=== PATIENT | female | born 1950 | race Caucasian/White ===

== ENCOUNTER 2019-01-26 11:56 | Inpatient (IN) | payer OTHER, BC, MEDICARE ==
[2019-01-26] VITALS (10 sets, daily range): BP systolic 97–129; BP diastolic 40–82; PULSE 70–83; TEMP 97.7–98.4
[~2019-01-26] VITALS: Ht 167.6 cm; Wt 64.3 kg
[2019-01-26] MEDS ORDERED: MULTI VITAMINS1 TAB PO (12:30)
[2019-01-26] MEDS ORDERED: GLUCOSAMIN 500 (12:30)
[2019-01-26] MEDS ORDERED: DIFLUCAN 100MG100 MG PO (12:31)
[2019-01-26] MEDS ORDERED: CALCIUM CARBON650 M2 (12:31)
--- NOTE | 2019-01-26 12:45 | NUR ---
Patient up to room 321, ambuatory. IV initiated to left forarm, x1 attempt. Family at bedside. Written orders entered into [facility]. Patient denies pain. Oriented patient and family to room. Denies further needs at this time.
[2019-01-26 12:53] LABS: BASO % 0.3 % (0.0-2.0); EOS # 0.1 (0.0-0.7); EOS % 0.5 % (0-4.0); GRAN # 6.7 (1.4-6.5); GRAN % 71.3 % (42.2-75.2); LYMPH # 1.7 (1.2-3.4); LYMPH % 18.4 % (20.0-51.0); MEAN CELL VOLUME 93 fl (80.0-100.0); MEAN CORPUSCULAR HGB CONC 32 g/dl (33.0-37.0); MEAN PLATELET VOLUME 10.2 fl (7.4-10.4); MONO # 0.9 (0.1-0.6); MONO % 9.1 % (1.7-9.3); PLATELET COUNT 449 K/mm3 (130-400); RED BLOOD COUNT 3.21 M/mm3 (4.10-5.30); REDCELL DISTRIBUTION WIDTH-CV 12.5 % (11.5-14.5)
[2019-01-26 13:00] LABS: C-REACTIVE PROTEIN 5.2 mg/dL (0.0-0.9); CALCIUM 8.9 mg/dL (8.4-10.2); CREATININE, serum 0.69 (0.52-1.25); POTASSIUM 4.6 mmol/L (3.4-5.0)
[2019-01-26 13:07] LABS: HEMATOCRIT 29.7 % (37.0-47.0); HEMOGLOBIN 9.6 g/dl (12.5-16.0); MEAN CORPUSCULAR HEMOGLOBIN 30 pg (27.0-31.0)
[2019-01-26 13:20] LABS: ERYTHROCYTE SEDIMENTATION RATE 92 mm/hr (0-30)
--- NOTE | 2019-01-26 20:00 | NUR ---
Received via bed post I/D right arm abscess, 68 Y/O female alert and oriented x4. Has IVF to left forearm without redness or swelling. Has right arm in sling with hemovac compressed. Reports numbess of right arm, not able to move fingers of rt hand but are warm to touch. Family at bedside.
--- NOTE | 2019-01-26 21:00 | NUR ---
Provided sandwich and fluids to drink. IV Vanco infusing without problem.
--- NOTE | 2019-01-26 22:00 | NUR ---
Up to bathroom with supervision. Voids and back to bed. Rt arm remains numb.
[2019-01-27] VITALS (7 sets, daily range): BP systolic 104–147; BP diastolic 46–82; PULSE 67–85; TEMP 97.8–98.4
--- NOTE | 2019-01-27 04:00 | NUR ---
Patient reports arm block has worn off, moves fingers on rt hand without problem. Denies pain.
--- NOTE | 2019-01-27 08:00 | NUR ---
PATIENT IS SITTING UP IN BED THIS MORNING. PATIENT IS A&OX4. VSS. BOWEL SOUNDS ACTIVE ALL FOUR QUADRANTS. PATIENT TOLERATING DIET WITHOUT COMPLAINTS OF N/V. RIGHT UPPER EXTREMITY DRESSED WITH GAUZE AND ANNA WRAP DRESSING WITH ARM TO A SLING. RUE DRESSING IS CD&I. POSITIVE RADIAL PULSES EQUAL BILATERALLY. CAP REFILL TO BUE <3 SECONDS. CMS INTACT. POSITIVE PEDAL PULSES EQUAL BILATERALLY. SCD'S TO BLE. RUE ELEVATED ON A PILLOW. TREMORS NOTED. PATIENT STATES THAT SHE HAS TINGLING IN HER RUE. PATIENT OTHERWISE DENIES PAIN. IV FLUIDS INFUSING TO LEFT FOREARM IV VIA PUMP. CALL LIGHT WITHIN REACH. PATIENT DENIES ANY OTHER NEEDS AT THIS TIME.
--- NOTE | 2019-01-27 10:11 | NUR ---
Initial visit; Patient thanked Lead Fabricator for looking in on her, offering God's blessings and to keep her in [employer]ator's prayers.
--- NOTE | 2019-01-27 10:21 | NUR ---
MESSAGE LEFT WITH DR. GARCIA REGARDING CONSULT. WILL WAIT FOR RETURN PHONE CALL.
--- NOTE | 2019-01-27 10:30 | NUR ---
CHRISTELLE met with the patient to discuss a discharge plan. The patient lives with her , Cruz in [place]. The patient does not have DME and reports independence with ADLs. The patient's PCP is Dr. Paul and patient recieves medications from [facility] with no difficulties. The patient does not have advanced directives in the EMR and was not interested in obtaining a DPOA-HC form. The patient plans to return home upon discharge with Cruz providing transportation. There are no additional needs at this time.
--- NOTE | 2019-01-27 19:18 | NUR ---
REPORT GIVEN TO OMAR TILLEY.
--- NOTE | 2019-01-27 20:10 | NUR ---
Patient in bed, is alert and oriented x4. SL to left forearm, connected IV Vancomycin at this time. RT arm in sling, hemovac compressed, drsg D/I. Patient reports only minimal discomfort at this time.
--- NOTE | 2019-01-27 21:38 | NUR ---
Tramadol 50mg po for pain 3/10 to right arm.
[2019-01-28 04:00] VITALS: BP 144/51; PULSE 77; TEMP 97.9
--- NOTE | 2019-01-28 04:00 | NUR ---
Offers no concerns at this time, denies need for pain meds at this time.
[2019-01-28 07:28] VITALS: BP 129/61; PULSE 74; TEMP 97.8
[2019-01-28 12:09] VITALS: BP 171/80; PULSE 88; TEMP 98.4
--- NOTE | 2019-01-28 15:22 | NUR ---
take away worker met with patient, spouse, and son to discuss requirement of IV antibiotic post discharge. Patient and family state that patient will obtain her IV antibiotics at the [facility]. Worker gave [facility] a referral and faxed clinical information, advising of discharge on 01/19/19. Patient will need to receive Vancomyacin twice daily 8am and 8pm. Patient will receive Rocephin once daily at 8:00am. Patient will receive her antibiotics tomorrow in the morning and will receive her evening dose at the [facility]. Spouse states they [place] [address] from the hospital.
[2019-01-28 16:09] VITALS: BP 154/58; PULSE 85; TEMP 98.1
--- NOTE | 2019-01-28 17:00 | NUR ---
Patient has been doing well today. She sat up in the chair most the day. Denies pain and nausea today. PICC placed today, plan is to discharge with it and get IV antibiotics for 6 weeks. Info has been sent to [facility] about patient and plan for outpatient antibiotics. Her family has been here to visit her. No other changes at this time. Call light within reach.
--- NOTE | 2019-01-28 18:16 | NUR ---
Pt resting in chair, was given fresh ice water, denies any pain or other needs at this time, call light within reach. Reported off to OMAR Poole
--- NOTE | 2019-01-28 19:45 | NUR ---
Assessment complete. Patient denies pain. Dressing to right arm CDI. Arm sling in place. Hemovac drain compressed with scant amount of bloody drainage. Patient denies further needs or concerns.
[2019-01-28 20:00] VITALS: BP 158/73; PULSE 78; TEMP 97.8
--- NOTE | 2019-01-28 21:47 | NUR ---
Patient requests a pain pill to take to help her relax to go to sleep. Administered pain medication as prescribed. Patient denies further needs at this time.
[2019-01-28 23:38] VITALS: BP 157/71; PULSE 85; TEMP 97.9
--- NOTE | 2019-01-28 23:52 | NUR ---
Lying supine in bed with eyes closed. Respirations even and unlabored. No signs or symptoms of discomfort noted.
[2019-01-29 05:27] VITALS: BP 159/69; PULSE 75; TEMP 98
--- NOTE | 2019-01-29 05:38 | NUR ---
Lying in bed. Eyes open when enter room. Denies pain or discomfort. Ambulates to bathroom to void and then returns to bed. Patient denies further needs at this time.
[2019-01-29] MEDS ORDERED: ULTRAM 50MG TAB50 MG PO (06:38)
[2019-01-29 07:11] VITALS: BP 139/60; PULSE 76; TEMP 97.9
[2019-01-29 11:42] VITALS: BP 157/93; PULSE 78; TEMP 98.1
--- NOTE | 2019-01-29 12:30 | NUR ---
Patient has been doing well today. Denies pain today. She has been up in the chair most of the day. Was upset that she is not going to be discharge today. Discussed how the cultures work and that they take at 3 days usually. Patient verbalized understanding. No complaints of pain or nausea. Dr Conway removed drain this am. No other changes at this time, call light within reach.
[2019-01-29 15:39] VITALS: BP 139/75; PULSE 80; TEMP 97.8
[2019-01-29 19:23] VITALS: BP 164/51; PULSE 84; TEMP 98.3
--- NOTE | 2019-01-29 19:45 | NUR ---
Contacted NADEEN Martinez, and explained that the order for the patient's Vanco had been discontinued due to 6 doses given. Orders received to continue Vancomycin as previously prescribed.
--- NOTE | 2019-01-29 20:07 | NUR ---
Sitting up in bed watching TV. Denies pain. Dressing to right shoulder CDI. Right arm in sling. PICC line in left upper arm with ANNA wrap, no swelling/redness/edema noted. Patient would like pain pill to help her relax when she goes to sleep. Administered medication as ordered. Patient denies further needs.
--- NOTE | 2019-01-29 21:42 | NUR ---
Lying in bed with eyes open watching TV. Denies pain or any further needs or concerns.
[2019-01-29 23:41] VITALS: BP 159/50; PULSE 80; TEMP 99
--- NOTE | 2019-01-29 23:51 | NUR ---
Lying in bed with eyes closed. Eyes open when enter room. Denies pain or further needs or concerns at this time.
[2019-01-30 03:57] VITALS: BP 168/68; PULSE 84; TEMP 98.3
--- NOTE | 2019-01-30 04:00 | NUR ---
Patient returning to bed from using the restroom. Denies pain. Repositions self in the bed. Provided patient with frsh ice water. Right arm in sling. Dressing CDI. Patient denies further needs at this time.
[2019-01-30 07:02] VITALS: BP 162/67; PULSE 78; TEMP 97.8
--- NOTE | 2019-01-30 11:14 | NUR ---
Patient has been doing well this am. She is hoping to discharge home today. No complaints of pain or nausea this morning. No other changes at this time. Call light within reach.
[2019-01-30 11:17] VITALS: BP 194/78; PULSE 81; TEMP 98.1
[2019-01-30] MEDS ORDERED: VANCO 1 GR1 GM/250 M IV (13:16)
[2019-01-30] MEDS ORDERED: CEFTRIAXON2 GM/50 ML IV (13:16)
--- NOTE | 2019-01-30 13:37 | NUR ---
Faxed DC to [facility]
--- NOTE | 2019-01-30 14:15 | NUR ---
Patient is discharging home. Discharge instructions discussed with patient. Questions asked and answered. Explained how to care for PICC line dressing. Explained to keep dressing to right arm clean and dry. Explained to cover PICC when showering. Sent an envelope with outpatient antibiotics for [facility]. Notified them that she is discharging. Copies of discharge instructions sent with patient. All belogings packed up by patient and . Patient walked out with this nurse.
--- NOTE | 2019-02-02 09:08 | NUR ---
jewelry bench worker notified Beatriz at [facility] #[phone] and advised requested discharge planning information. Worker faxed discharge orders and information to #[phone].
== END 2019-01-30 14:15 | disposition home or self-care (01) | DRG 560 ==
LOC: SURG 11:56
PROVIDERS: ADMIT Orthopaedic Surgery
PROC: 02HV33Z Insertion of Infusion Device into Superior Vena Cava, Percutaneous Approach (ICD-10-PCS; 2019-01-26)
PROC: 0J9D00Z Drainage of Right Upper Arm Subcutaneous Tissue and Fascia with Drainage Device, Open Approach (ICD-10-PCS; principal; 2019-01-26 17:00)
DX: T84.610A Infection and inflammatory reaction due to internal fixation device of right humerus, initial encounter (principal); M96.840 Postprocedural hematoma of a musculoskeletal structure following a musculoskeletal system procedure; L02.413 Cutaneous abscess of right upper limb; Y83.8 Other surgical procedures as the cause of abnormal reaction of the patient, or of later complication, without mention of misadventure at the time of the procedure; G25.0 Essential tremor
CPT/HCPCS: A9284; C1751; J0690; J0696; J2250; J2405; J2704; J2795; J3010; J3370; J7042; J7050; J7120

== ENCOUNTER 2019-03-10 12:31 | Outpatient (CLI) | payer OTHER, BC, MEDICARE ==
[~2019-03-10] VITALS: Ht 167.6 cm; Wt 64.9 kg
[~2019-03-10 12:31] MED LIST: CALCIUM CARBON650 M2; CEFTRIAXON2 GM/50 ML IV; DIFLUCAN 100MG100 MG PO; GLUCOSAMIN 500; MULTI VITAMINS1 TAB PO; ULTRAM 50MG TAB50 MG PO; VANCO 1 GR1 GM/250 M IV
[2019-03-10 12:54] VITALS: BP 121/95; PULSE 70
== END 2019-03-11 20:07 | disposition home or self-care (01) ==
LOC: EUO 12:31
DX: T81.49XA Infection following a procedure, other surgical site, initial encounter (principal)

== ENCOUNTER 2019-05-05 09:28 | Outpatient (RCR) | payer OTHER, BC, MEDICARE ==
[~2019-05-05] VITALS: Ht 167.6 cm; Wt 62.1 kg
[~2019-05-05 09:28] MED LIST changes: -CALCIUM CARBON650 M2; +CALCIUM CARBON650 M2 PO
[2019-05-05 10:30] VITALS: BP 135/88; PULSE 71; TEMP 98.2
[2019-05-05 11:24] LABS: BASO % 0.1 % (0.0-2.0); EOS # 0.1 (0.0-0.7); EOS % 1.8 % (0-4.0); GRAN # 5.1 (1.4-6.5); GRAN % 69.9 % (42.2-75.2); LYMPH # 1.4 (1.2-3.4); LYMPH % 19.9 % (20.0-51.0); MEAN CELL VOLUME 88 fl (80.0-100.0); MEAN CORPUSCULAR HGB CONC 32 g/dl (33.0-37.0); MONO # 0.6 (0.1-0.6); PLATELET COUNT 342 K/mm3 (130-400)
[2019-05-05 11:26] LABS: HEMATOCRIT 25.6 % (37.0-47.0); HEMOGLOBIN 8.2 g/dl (12.5-16.0); MEAN CORPUSCULAR HEMOGLOBIN 28 pg (27.0-31.0)
[2019-05-05 11:36] LABS: ALBUMIN 3.7 gm/dL (3.5-5.0); BILIRUBIN,TOTAL 0.3 mg/dL (0.0-1.0); C-REACTIVE PROTEIN 3.1 mg/dL (0.0-0.9); CALCIUM 9.2 mg/dL (8.4-10.2); CREATININE, serum 1.06 (0.52-1.25); POTASSIUM 4.6 mmol/L (3.4-5.0); TOTAL PROTEIN 6.6 gm/dL (6.4-8.2)
[2019-05-05 11:55] LABS: ERYTHROCYTE SEDIMENTATION RATE 80 mm/hr (0-30)
[2019-05-05] MEDS ORDERED: EPA FISH OIL1 SGL PO (12:03)
[2019-05-05] MEDS ORDERED: PHARMASSURE ZIN50 MG PO (12:04)
[2019-05-05] MEDS ORDERED: NATURAL MAGNES200 MG PO (12:04)
[2019-05-05] MEDS ORDERED: FOSAMAX 70MG TA70 MG PO (12:05)
== END 2019-05-05 12:08 | disposition home or self-care (01) ==
LOC: EUO 09:28
PROVIDERS: Nurse Practitioner
DX: Z45.2 Encounter for adjustment and management of vascular access device (principal); T81.49XA Infection following a procedure, other surgical site, initial encounter
CPT/HCPCS: C1751; C1892; J0878